=== PATIENT | female | born 1960 | race Caucasian/White ===

== ENCOUNTER 2018-05-21 09:15 | Day surgery (SDC) | payer MEDICARE, OTHER | END 2018-05-21 14:58 | disposition home or self-care (01) | LOC: GIL 09:15 | DX: R19.5 Other fecal abnormalities (principal); K64.8 Other hemorrhoids; K57.30 Diverticulosis of large intestine without perforation or abscess without bleeding; K21.9 Gastro-esophageal reflux disease without esophagitis | CPT/HCPCS: 43239; 88305 ==